=== PATIENT | female | born 1985 | race Caucasian/White ===

== ENCOUNTER 2024-01-16 13:31 | Emergency (ER) | payer OTHER, SELFPAY ==
--- NOTE | ~2024-01-16 | CT_ITS ---
EXAMINATION: CT abdomen pelvis w con DATE: 01/16/2024 16:19 INDICATION: LLQ tenderness TECHNIQUE: Computed tomography (CT) of the abdomen and pelvis was performed with 100 mL Omnipaque-350 intravenous contrast. Automated exposure control and iterative reconstruction technique were employe d. The dose-length product was 1773.74 mGy-cm. COMPARISON: None. FINDINGS: Lower thorax: Unremarkable Liver: Normal. Biliary/Gallbladder: Gallbladder is absent. No bile duct dilation. Pancreas: No mass or duct dilation. Spleen: Normal. Adrenals:No mass. Kidneys: No suspicious mass, obstructing stone, or hydronephrosis. Punctate nonobstructing right midp ole calcifications. Simple right lower pole cyst. GI tract: No small or large bowel dilation. Normal appendix. Mesentery/Peritoneum: No ascites, mass, or free air. Retroperitoneum: No mass. Pelvis: Normal appearing uterus with a likely scar. Normal right ovary. 3.7 cm low density l eft ovarian lesion. Partially distended urinary bladder with wall thickening. Soft Tissues: 2.9 x 3.3 cm soft tissue mass in the left lower quadrant associated with the presumed C -section scar. Bones: No acute osseous finding. IMPRESSION: Cystitis versus urinary bladder wall thickening from incomplete distention. 3.3 cm left lower quadrant soft tissue mass associated with the presumed scar, possible sca r endometriosis. 3.2 cm low-density left ovarian lesion possible hemorrhagic cyst or endometrioma. Endometriosis is fa vored given the above findings. Consider pelvic ultrasound for further evaluation. Reviewed, dictated and finalized at location K. IMPRESSION: Cystitis versus urinary bladder wall thickening from incomplete distention. 3.3 cm left lower quadrant soft tissue mass associated with the presumed C-sect ion scar, possible scar endometriosis. 3.2 cm low-density left ovarian lesion possible hemorrhagic cyst or endometriom a. Endometriosis is favored given the above findings. Consider pelvic ultrasound for further evaluation.
[2024-01-16 13:34] VITALS: BP 129/53; PULSE 71; RESP 20; TEMP 36.9; O2SAT 100
--- NOTE | 2024-01-16 14:23 | ED.ABDPAIN ---
HPI - Abdominal Pain General Chief Complaint: Abdominal Pain Stated Complaint: abd pain Time Seen by Provider: 01/16/24 14:12 Source: patient Mode of arrival: ambulatory Limitations: no limitations History of Present Illness HPI narrative: This is a 38-year-old female who presents to the ED with chief complaint of lower abdominal pain for the past 2 days. Patient reports pressure when urinating and a lot of urinary urgency. Also reports mild constipation. Patient reports that the pain comes and goes but gets sharply worse at times. Denies any GI bleeding symptoms. Endorses nausea but no vomiting. Related Data Allergies Allergy/AdvReac Type Severity Reaction Status Date / Time No Known Allergies Allergy Verified 01/16/24 13:37 Review of Systems Review of Systems: All systems as dictated in HPI Exam Narrative: GENERAL: Well-appearing, well-nourished, and in no acute distress. HEAD: Normocephalic, atraumatic. EYES: PERRLA and EOMI. ENT: Nares clear, no rhinorrhea or epistaxis. Mucous membranes moist. Oropharynx without tonsillar hypertrophy exudate or other lesions. NECK: Supple. No adenopathy or masses. CHEST: No respiratory distress. Clear to auscultation. No wheezes rales or rhonchi HEART: Regular rate and rhythm. No murmur heard. Normal peripheral pulses. ABDOMEN: Left lower quadrant tenderness focally. Soft, otherwise nontender, nondistended, normal active bowel sounds. Negative flank tenderness bilaterally MSK: Normal range of motion. No edema. SKIN: Warm, dry, no rash. NEURO: Alert and oriented x3. No focal deficits. PSYCH: Normal mood and affect. Course Vital Signs Vital signs: Vital Signs Temperature 98.4 F 01/16/24 13:34 Pulse Rate 71 01/16/24 13:34 Respiratory Rate 20 01/16/24 13:34 Blood Pressure 129/53 L 01/16/24 13:34 Pulse Oximetry 100 01/16/24 13:34 Oxygen Delivery Room Air 01/16/24 13:34 Temperature 98.4 F 01/16/24 13:34 Pulse Rate 66 01/16/24 17:00 Respiratory Rate 14 01/16/24 17:00 Blood Pressure 112/54 L 01/16/24 17:00 Pulse Oximetry 99 01/16/24 17:00 Oxygen Delivery Room Air 01/16/24 13:34 MDM - Abdominal Pain MDM Narrative Medical decision making narrative: This is a 38-year-old female who presents to the ED with chief complaint of left lower quadrant pain for the past couple of days. Vitals are normal. Exam shows focal left lower quadrant tenderness. Lab work largely unremarkable. Mild hypokalemia. Urinalysis is unrevealing. No overt evidence of UTI, urine culture pending. CT imaging of the abdomen pelvis with IV contrast: Cystitis versus urinary bladder wall thickening from incomplete distention. 3.3 cm left lower quadrant soft tissue mass associated with the presumed scar, possible scar endometriosis. 3.2 cm low-density left ovarian lesion possible hemorrhagic cyst or endometrioma. Endometriosis is favored given the above findings. Consider pelvic ultrasound for further evaluation. Re-evaluation after morphine and Zofran, patient is resting very comfortably. She feels ready to go home at this point. Discussed with her that these findings likely represent endometriosis. We discussed that she needs of ultrasound for further evaluation but she is comfortable going home and following with OB for this. I have low concern for ovarian torsion. Pt will be discharged in stable condition. Return precautions given and supportive measures discussed. Pt is understanding and agreeable with plan for discharge and follow-up with PCP. Differential Diagnosis Differential diagnosis: Likely acute appendicitis, constipation, diverticulitis, endometriosis, pancreatitis and small bowel obstruction Lab Data 01/16/24 14:34 01/16/24 14:34 Labs: Lab Results 01/16/24 01/16/24 Range/Units 14:34 15:26 WBC 7.2 (4.5-10.0) K/mm3 RBC 4.60 (4.2-5.4) M/mm3 Hgb 14.5 (12.0-15.0) g/dL Hct 43.
[2024-01-16] MEDS: ONDANSETRON INJ 4 MG/2 ML VIAL IV PUSH (14:38)
[2024-01-16] MEDS: MORPHINE SULFATE (*CRX) 4 MG/ML INJ IV PUSH (14:38)
[2024-01-16 14:42] LABS: Basophils Percent Auto 0.6 % (0.2-1.2); Eosinophils Absolute Auto 0.1 K/mm3 (0-0.3); Eosinophils Percent Auto 1.3 % (0-4.4); Hematocrit 43.7 % (37.0-47.0); Hemoglobin 14.5 g/dL (12.0-15.0); Immature Granulocyte Absolute 0.03 K/mm3 (0.00-0.031); Immature Granulocyte Percent A 0.4 % (0-0.5); Lymphocytes Absolute Auto 2.38 K/mm3 (0.9-3.2); Lymphocytes Percent Auto 33.2 % (18.3-44.2); Mean Corpuscular HGB Conc 33.2 g/dl (32-36); Mean Corpuscular Hemoglobin 31.5 pg (26-34); Mean Platelet Volume 10.6 fl (7.4-10.4); Monocytes Absolute Auto 0.4 K/mm3 (0.1-0.6); Neutrophils Absolute Auto 4.3 K/mm3 (1.3-6.7); Neutrophils Percent Auto 59.5 % (45.5-73.1); Platelet Count Result 255 k/mm3 (150-375); White Blood Count 7.2 K/mm3 (4.5-10.0)
[2024-01-16 14:52] LABS: Alanine Aminotransferase 30 U/L (6-35); Albumin Level 4.3 g/dL (3.5-5.1); Alkaline Phosphatase 61 U/L (38-126); Anion Gap 6 mmol/L (4-12); Aspartate Amino Transferase 26 U/L (14-36); Bilirubin,Total 0.6 mg/dL (0.2-1.3); Blood Urea Nitrogen 15 mg/dL (7-17); Calcium 9.4 mg/dL (8.4-10.2); Carbon Dioxide 27 mmol/L (22-30); Chloride 107 mmol/L (98-107); Estimated CRCL calculation 170 ml/min; Estimated Glomerular Filt Rate > 60; Glucose 94 mg/dL (65-110); Lipase 59 U/L (23-300); Potassium 3.3 mmol/L (3.4-5.0); Sodium 140 mmol/L (137-145)
[2024-01-16 15:40] LABS: Appearance Urine Cloudy (Clear); Bacteria Urine 1+ /hpf; Bilirubin Urine Negative (Negative); Blood Urine Negative (Negative); Color Urine Yellow (Yellow); Glucose Urine UA Negative (Negative); Ketones Urine Negative (Negative); Leukocyte Esterase Ur Trace LEU/UL (Negative); Nitrate Urine Negative (Negative); Non Pathogenic Casts 0-2; Protein Urine Negative (Negative); Squamous Epithelial Cell Urine Occasional /hpf (Few); WBC Urine 0-5 /hpf (0-3)
[2024-01-16 15:48] LABS: Add Urine Microscopic? YES
[2024-01-16 17:00] VITALS: BP 112/54; PULSE 66; RESP 14; O2SAT 99
== END 2024-01-16 17:09 | disposition home or self-care (01) ==
PROVIDERS: Emergency Medicine; Emergency Provider Physician Assistant; PCP Emergency Medicine
DX: N80.122 Deep endometriosis of left ovary (principal)
CPT/HCPCS: 36415; 74177; 80053; 81001; 81025; 83690; 85025; 96374; 96375; 99284; J2270; J2405; Q9967